=== PATIENT | female | born 1965 | race Caucasian/White ===

== ENCOUNTER 2021-04-12 12:49 | Emergency (ER) | payer BC ==
[2021-04-12] MEDS ORDERED: Sodium Chloride 0.9% 1,000 ML IV ONE (13:23)
[2021-04-12 13:44] VITALS: BP 121/78; PULSE 90
[2021-04-12 14:19] LABS: CORONAVIRUS COVID-19 NAA POSITIVE (NEGATIVE)
== END 2021-04-12 14:59 | disposition home or self-care (01) ==
LOC: CC.ED 12:49
DX: U07.1 COVID-19 (principal); Z79.82 Long term (current) use of aspirin; Z79.899 Other long term (current) drug therapy; Z90.710 Acquired absence of both cervix and uterus
CPT/HCPCS: 0240U; 36415; 71046; 80053; 85025; 86140; 99283-25; J7030